=== PATIENT | female | born 1990 | race African-American/Black ===

== ENCOUNTER 2017-02-19 23:15 | Emergency (ER) | payer MEDICAID ==
[~2017-02-19] VITALS: Ht 180.3 cm; Wt 155.0 kg
[2017-02-20] MEDS ORDERED: LIDOCAINE HCL/EPINEPHRINE 1%-EPI 1:100,000 20 ML VIAL MC ONE (00:15)
[2017-02-20] MEDS ORDERED: ONDANSETRON 4MG ODT PO ONE (00:15)
[2017-02-20] MEDS ORDERED: MORPHINE SULFATE 10 MG/ML CPJ IM ONE (00:15)
[2017-02-20 02:00] VITALS: BP 120/69
== END 2017-02-20 02:00 | disposition home or self-care (01) ==
LOC: ER 23:54
DX: L02.411 Cutaneous abscess of right axilla (principal); J45.909 Unspecified asthma, uncomplicated; R03.0 Elevated blood-pressure reading, without diagnosis of hypertension; E66.9 Obesity, unspecified; Z68.42 Body mass index [BMI] 45.0-49.9, adult
CPT/HCPCS: 10060; 96372; 99283; J2270; J3490; Q0162; Z7610

== ENCOUNTER 2017-04-18 15:22 | Emergency (ER) | payer MEDICAID ==
[~2017-04-18] VITALS: Ht 180.3 cm; Wt 125.0 kg
[2017-04-18] MEDS: ONDANSETRON HCL 4MG/2ML VIAL IV ONE (21:00)
[2017-04-18 21:11] LABS: CHLORIDE 107 mEq/L (98-107); INDEX HEMOLYSI 1 (1-3); INDEX ICTERIC 1 (1-4); INDEX LIPEMIC 1 (1-3)
[2017-04-18 21:12] LABS: BASOPHILS % 1.1 % (0.0-2.0); EOSINOPHILS % 0.3 % (0.0-5.0); HEMATOCRIT. 29.9 % (36.0-48.0); LYMPHOCYTES % 20.4 % (20.0-50.0); MEAN CORPUSCULAR HEMOGLOBIN 20.7 pg (28.0-32.0); MEAN CORPUSCULAR HGB CONC 30.2 g/dL (31.0-37.0); MEAN CORPUSCULAR VOLUME 68.5 fL (81.0-99.0); MEAN PLATELET VOLUME 9.2 fl (7.4-10.4); MONOCYTES % 3.6 % (2.0-8.0); NEUTROPHILS % 74.6 % (40.0-76.0); PLATELET 319 x1000/uL (130-400); RED BLOOD CELL COUNT 4.37 mill/uL (4.2-5.4); RED CELL DISTRIBUTION WIDTH 20.2 % (11.6-14.6); WHITE BLOOD COUNT 14.9 x1000/uL (4.5-11.0)
[2017-04-18 21:13] LABS: ANION GAP 9; CALCIUM 8.1 mg/dL (8.5-10.1); CARBON DIOXIDE 28 mEq/L (21-32)
[2017-04-18 21:14] LABS: ADD RBC MORPHOLOGY YES; DIFFERENTIAL COMMENT 1
[2017-04-18 21:16] LABS: HCG SCREEN NEGATIVE; UREA NITROGEN BLOOD 6 mg/dL (7-21)
[2017-04-18 21:21] LABS: B-HCG QUANTITATIVE < 1 mIU/mL (<3); eGFR > 60 mL/min (>60)
[2017-04-18 21:39] LABS: HYPOCHROMASIA 2+; PLATELET ESTIMATE NORMAL
[2017-04-18] MEDS: MORPHINE SULFATE 4 MG/ML CPJ (NOT FOR IM USE) IV ONE (22:50)
[2017-04-18] MEDS: SODIUM CHLORIDE 0.9% 1,000 ML IV ONE (22:50)
[2017-04-18 23:46] LABS: CLARITY URINE CLOUDY (CLEAR); COLOR URINE RED (YELLOW); GLUCOSE URINE NEGATIVE (NEGATIVE); KETONES URINE NEGATIVE (NEGATIVE); LEUKOCYTE ESTERASE URINE 1+ (NEGATIVE); NITRITE URINE NEGATIVE (NEGATIVE); OCCULT BLOOD URINE 3+ (NEGATIVE); PH URINE 6.5 (4.5-8.0); PROTEIN URINE 1+ (NEGATIVE); SPECIFIC GRAVITY URINE 1.013 (1.005-1.030); UROBILINOGEN URINE 0.2 E.U./dL (0.2-1.0)
[2017-04-19 00:13] LABS: RBC URINE TNTC /hpf (0-2)
[2017-04-19 00:14] LABS: BACTERIA URINE 3+; SQUAMOUS EPITHELIAL CELL URINE 2+ /lpf (RARE/1+)
[2017-04-19] MEDS: LIDOCAINE HCL 1% 20ML VIAL (Pyxis) INJ MC ONE (00:47)
[2017-04-19] MEDS: AZITHROMYCIN 250 MG TABLET PO ONE (00:47)
[2017-04-19] MEDS: CEFTRIAXONE SODIUM 1 G/VIAL IM ONE (00:47)
[2017-04-19 01:51] VITALS: BP 153/70
== END 2017-04-19 01:54 | disposition home or self-care (01) ==
LOC: ER 15:23
DX: N93.9 Abnormal uterine and vaginal bleeding, unspecified (principal); R10.32 Left lower quadrant pain; J45.909 Unspecified asthma, uncomplicated; F12.10 Cannabis abuse, uncomplicated
CPT/HCPCS: 36415; 76830; 76856; 80048; 81001; 84702; 84703; 85025; 96361; 96372; 96374; 96375; 99285; J0696; J2270; J2405; J3490; J7030; Z7610

== ENCOUNTER 2017-04-26 01:48 | Emergency (ER) | payer MEDICAID ==
[~2017-04-26] VITALS: Ht 180.3 cm; Wt 160.0 kg
[2017-04-26] MEDS ORDERED: SODIUM CHLORIDE 0.9% 1,000 ML IV ONE (03:48)
[2017-04-26] MEDS ORDERED: MORPHINE SULFATE 4 MG/ML CPJ (NOT FOR IM USE) IV ONE (04:00)
[2017-04-26] MEDS ORDERED: ONDANSETRON HCL 4MG/2ML VIAL IV ONE (04:00)
[2017-04-26 04:20] LABS: BASOPHILS % 0.8 % (0.0-2.0); EOSINOPHILS % 0.6 % (0.0-5.0); HEMATOCRIT. 27.3 % (36.0-48.0); HEMOGLOBIN. 8.5 g/dL (12.0-16.0); LYMPHOCYTES % 27.5 % (20.0-50.0); MEAN CORPUSCULAR HEMOGLOBIN 20.9 pg (28.0-32.0); MEAN CORPUSCULAR VOLUME 67.4 fL (81.0-99.0); MEAN PLATELET VOLUME 8.9 fl (7.4-10.4); MONOCYTES % 5.8 % (2.0-8.0); NEUTROPHILS % 65.3 % (40.0-76.0); PLATELET 303 x1000/uL (130-400); RED BLOOD CELL COUNT 4.05 mill/uL (4.2-5.4)
[2017-04-26 04:24] LABS: PLATELET ESTIMATE NORMAL
[2017-04-26 04:33] LABS: CARBON DIOXIDE 28 mEq/L (21-32); CHLORIDE 106 mEq/L (98-107)
[2017-04-26 04:38] LABS: B-HCG QUANTITATIVE < 1 mIU/mL (<3)
[2017-04-26 06:45] VITALS: BP 117/50
[2017-04-26 06:59] LABS: CLARITY URINE CLOUDY (CLEAR); COLOR URINE ORANGE (YELLOW); GLUCOSE URINE NEGATIVE (NEGATIVE); KETONES URINE NEGATIVE (NEGATIVE); LEUKOCYTE ESTERASE URINE 1+ (NEGATIVE); NITRITE URINE NEGATIVE (NEGATIVE); OCCULT BLOOD URINE 3+ (NEGATIVE); PH URINE 5.5 (4.5-8.0); PROTEIN URINE TRACE (NEGATIVE); SPECIFIC GRAVITY URINE 1.021 (1.005-1.030)
== END 2017-04-26 08:12 | disposition home or self-care (01) ==
LOC: ER 01:49
DX: N93.8 Other specified abnormal uterine and vaginal bleeding (principal); D50.9 Iron deficiency anemia, unspecified; N92.0 Excessive and frequent menstruation with regular cycle; N39.0 Urinary tract infection, site not specified; J45.909 Unspecified asthma, uncomplicated
CPT/HCPCS: 36415; 80053; 81001; 83690; 84702; 85025; 86850; 86900; 86901; 96361; 96374; 96375; 99285; J2270; J2405; J7030

== ENCOUNTER 2017-05-07 22:20 | Emergency (ER) | payer MEDICAID ==
[~2017-05-07] VITALS: Ht 180.3 cm; Wt 125.0 kg
[2017-05-08 00:28] LABS: CHLORIDE 103 mEq/L (98-107)
[2017-05-08 00:30] LABS: HCG SCREEN NEGATIVE
[2017-05-08 00:31] LABS: BASOPHILS % 0.2 % (0.0-2.0); EOSINOPHILS % 0.5 % (0.0-5.0); HEMATOCRIT. 25.3 % (36.0-48.0); HEMOGLOBIN. 7.8 g/dL (12.0-16.0); LYMPHOCYTES % 21.4 % (20.0-50.0); MEAN CORPUSCULAR HEMOGLOBIN 20.9 pg (28.0-32.0); MEAN CORPUSCULAR VOLUME 67.7 fL (81.0-99.0); MEAN PLATELET VOLUME 8.2 fl (7.4-10.4); MONOCYTES % 4.3 % (2.0-8.0); NEUTROPHILS % 73.6 % (40.0-76.0); PLATELET 340 x1000/uL (130-400); RED BLOOD CELL COUNT 3.74 mill/uL (4.2-5.4)
[2017-05-08 00:36] LABS: CARBON DIOXIDE 27 mEq/L (21-32)
[2017-05-08 00:39] LABS: PROTHROMBIN TIME 10.8 sec
[2017-05-08 01:33] VITALS: BP 138/71
== END 2017-05-08 01:34 | disposition home or self-care (01) ==
LOC: ER 22:20
DX: N93.8 Other specified abnormal uterine and vaginal bleeding (principal); F12.90 Cannabis use, unspecified, uncomplicated
CPT/HCPCS: 36415; 80053; 84703; 85025; 85610; 99284; Z7610

== ENCOUNTER 2022-05-03 22:46 | Emergency (ER) | payer MEDICAID, OTHER ==
[~2022-05-03] VITALS: Ht 180.3 cm; Wt 170.0 kg
[2022-05-04] MEDS ORDERED: ACETAMINOPHEN 325MG TABLET PO STA (00:10)
[2022-05-04 00:38] LABS: CLARITY URINE CLEAR (CLEAR); COLOR URINE YELLOW (YELLOW); KETONES URINE TRACE (NEGATIVE); LEUKOCYTE ESTERASE URINE NEGATIVE (NEGATIVE); NITRITE URINE NEGATIVE (NEGATIVE); OCCULT BLOOD URINE NEGATIVE (NEGATIVE); PROTEIN URINE NEGATIVE (NEGATIVE); SPECIFIC GRAVITY URINE 1.024 (1.005-1.030)
[2022-05-04 01:48] LABS: BASOPHILS % 0.3 % (0.0-2.0); EOSINOPHILS % 0.6 % (0.0-5.0); HEMATOCRIT. 33.1 % (36.0-48.0); HEMOGLOBIN. 9.9 g/dL (12.0-16.0); LYMPHOCYTES % 24.1 % (20.0-50.0); MEAN CORPUSCULAR HEMOGLOBIN 19.9 pg (28.0-32.0); MEAN CORPUSCULAR VOLUME 66.3 fL (81.0-99.0); MEAN PLATELET VOLUME 8.9 fl (7.4-10.4); MONOCYTES % 4.3 % (2.0-8.0); NEUTROPHILS % 70.7 % (40.0-76.0); PLATELET 327 x1000/uL (130-400); RED BLOOD CELL COUNT 4.99 mill/uL (4.2-5.4); RED CELL DISTRIBUTION WIDTH 20.8 % (11.6-14.6)
[2022-05-04 01:56] LABS: CHLORIDE 107 mEq/L (98-107)
[2022-05-04] MEDS ORDERED: ACETAMINOPHEN WITH CODEINE 300/30MG TABLET PO ONE (02:15)
[2022-05-04] MEDS ORDERED: TOPUD MT (02:15)
[2022-05-04 02:45] VITALS: BP 127/74
== END 2022-05-04 02:25 | disposition home or self-care (01) ==
LOC: ER 22:46
DX: R10.2 Pelvic and perineal pain (principal); F12.10 Cannabis abuse, uncomplicated; Z88.6 Allergy status to analgesic agent
CPT/HCPCS: 36415; 76830; 76856; 80053; 81003; 85025; 99284

== ENCOUNTER 2025-01-17 21:05 | Emergency (ER) | payer OTHER ==
[~2025-01-17] VITALS: Ht 180.3 cm; Wt 139.0 kg
[~2025-01-17 21:05] MED LIST: TOPUD MT
[2025-01-17 21:10] VITALS: BP 159/98; PULSE 82; RESP 16; TEMP 36.7; O2SAT 99
[2025-01-17 21:45] LABS: DIFFERENTIAL COMMENT 0; EOSINOPHILS % 0.5 % (0.0-5.0); HEMATOCRIT. 32.8 % (36.0-48.0); HEMOGLOBIN. 10.2 g/dL (12.0-16.0); LYMPHOCYTES % 26.5 % (20.0-50.0); MEAN CORPUSCULAR HEMOGLOBIN 22.2 pg (28.0-32.0); MEAN CORPUSCULAR VOLUME 71.4 fL (81.0-99.0); MEAN PLATELET VOLUME 8.8 fl (7.4-10.4); MONOCYTES % 3.5 % (2.0-8.0); NEUTROPHILS % 68.5 % (40.0-76.0); PLATELET 312 x1000/uL (130-400); RED CELL DISTRIBUTION WIDTH 19.1 % (11.6-14.6); WHITE BLOOD COUNT 12.4 x1000/uL (4.5-11.0)
[2025-01-17 22:04] LABS: CHLORIDE 106 mEq/L (98-107); POTASSIUM 3.8 mEq/L (3.5-5.1); SODIUM 138 mEq/L (136-145)
[2025-01-17 22:05] LABS: CALCIUM 8.8 mg/dL (8.7-10.4); CARBON DIOXIDE 23 mEq/L (21-32)
[2025-01-17 22:10] LABS: CREATININE 0.7 mg/dL (0.6-1.0); GLUCOSE 121 mg/dL (70-105); UREA NITROGEN BLOOD 7 mg/dL (9-23)
[2025-01-17 22:11] LABS: TROPONIN I HIGH SENSITIVITY < 4 ng/L (3.0-34)
== END 2025-01-17 23:37 | disposition left against medical advice (07) ==
LOC: ER 21:05
DX: R07.9 Chest pain, unspecified (principal); R53.1 Weakness; Z98.890 Other specified postprocedural states; Z53.21 Procedure and treatment not carried out due to patient leaving prior to being seen by health care provider
CPT/HCPCS: 36415; 71045; 80048; 84484; 85025; 93005

== ENCOUNTER 2025-05-26 04:05 | Emergency (ER) | payer OTHER ==
[~2025-05-26] VITALS: Ht 180.3 cm; Wt 183.0 kg
[2025-05-26 04:27] VITALS: O2SAT 100
[2025-05-26 05:06] LABS: BASOPHILS % 0.8 % (0.0-2.0); EOSINOPHILS % 0.5 % (0.0-5.0); HEMATOCRIT. 35.2 % (36.0-48.0); HEMOGLOBIN. 10.8 g/dL (12.0-16.0); LYMPHOCYTES % 26.9 % (20.0-50.0); MEAN PLATELET VOLUME 9.1 fl (7.4-10.4); MONOCYTES % 3.9 % (2.0-8.0); NEUTROPHILS % 67.9 % (40.0-76.0); PLATELET 308 x1000/uL (130-400); RED BLOOD CELL COUNT 5.05 mill/uL (4.2-5.4); RED CELL DISTRIBUTION WIDTH 20.3 % (11.6-14.6)
[2025-05-26 05:17] LABS: ADD RBC MORPHOLOGY YES
[2025-05-26 05:23] LABS: CLARITY URINE CLEAR (CLEAR); COLOR URINE YELLOW (YELLOW); CREATININE 0.8 mg/dL (0.6-1.0); GLUCOSE URINE NEGATIVE (NEGATIVE); KETONES URINE NEGATIVE (NEGATIVE); LEUKOCYTE ESTERASE URINE NEGATIVE (NEGATIVE); NITRITE URINE NEGATIVE (NEGATIVE); OCCULT BLOOD URINE NEGATIVE (NEGATIVE); PH URINE 5.5 (4.5-8.0); PROTEIN URINE NEGATIVE (NEGATIVE); SPECIFIC GRAVITY URINE 1.020 (1.005-1.030); UREA NITROGEN BLOOD 9 mg/dL (9-23); UROBILINOGEN URINE 0.2 E.U./dL (0.2-1.0)
[2025-05-26 05:25] LABS: ASPARTATE AMINOTRANSFERASE 14 IU/L (<34); BILIRUBIN TOTAL 0.2 mg/dL (0.1-1.0); PROTEIN TOTAL 7.8 g/dL (6.0-8.3)
[2025-05-26] MEDS: MAGNESIUM/ALUMINUM HYDROXIDE/SIMETHICONE 30ML UDC PO STA ×2 (06:16→07:59)
[2025-05-26] MEDS: VISCOUS LIDOCAINE 2% 15 ML UDC PO STA (06:16)
[2025-05-26 06:18] LABS: HCG SCREEN NEGATIVE
[2025-05-26] MEDS: ONDANSETRON HCL 4MG/2ML INJ IV STA (06:26)
[2025-05-26] MEDS: MORPHINE SULFATE 4 MG/ML INJ (FOR IV/IM USE) IV STA (06:27)
[2025-05-26 06:42] LABS: PLATELET ESTIMATE NORMAL
[2025-05-26] MEDS: KETOROLAC 30MG/ML VIAL IV ONE (07:00)
[2025-05-26] MEDS: OXYCODONE HCL/ACETAMINOPHEN 5/325MG TABLET PO ONE (07:03)
[2025-05-26] MEDS ORDERED: OMEP20CA14 MT (07:49)
[2025-05-26 07:54] VITALS: BP 115/56; PULSE 67; RESP 18; TEMP 37.2; O2SAT 100
== END 2025-05-26 08:15 | disposition home or self-care (01) ==
LOC: ER 04:05
DX: R10.32 Left lower quadrant pain (principal); M25.561 Pain in right knee; M25.562 Pain in left knee; M06.9 Rheumatoid arthritis, unspecified; Z79.899 Other long term (current) drug therapy; Z88.6 Allergy status to analgesic agent
CPT/HCPCS: 80053; 81003; 81025; 84703; 85025; 36415; 71045; 96374; 96375; 99285; J1885; J2405; J2270; Z7610

== ENCOUNTER 2025-11-10 20:10 | Inpatient (IN) | payer MEDICAID, OTHER ==
[~2025-11-10] VITALS: Ht 180.3 cm; Wt 191.9 kg
[~2025-11-10 20:10] MED LIST changes: +OMEP20CA14 MT
[2025-11-10 20:16] VITALS: O2SAT 99
[2025-11-11] MEDS: ONDANSETRON HCL 4MG/2ML INJ IV ONE (00:35)
[2025-11-11] MEDS: MORPHINE SULFATE 4 MG/ML INJ (FOR IV/IM USE) IV ONE (00:35)
[2025-11-11 00:48] LABS: BASOPHILS % 1.0 % (0.0-2.0); EOSINOPHILS % 0.9 % (0.0-5.0); HEMATOCRIT. 36.1 % (36.0-48.0); HEMOGLOBIN. 11.2 g/dL (12.0-16.0); LYMPHOCYTES % 16.7 % (20.0-50.0); MEAN PLATELET VOLUME 9.0 fl (7.4-10.4); MONOCYTES % 2.6 % (2.0-8.0); NEUTROPHILS % 78.8 % (40.0-76.0); PLATELET 289 x1000/uL (130-400); RED BLOOD CELL COUNT 4.80 mill/uL (4.2-5.4); RED CELL DISTRIBUTION WIDTH 22.9 % (11.6-14.6)
[2025-11-11 00:51] LABS: ADD RBC MORPHOLOGY YES
[2025-11-11 01:01] LABS: INR 1.0
[2025-11-11 01:02] LABS: CREATININE 0.7 mg/dL (0.6-1.0); UREA NITROGEN BLOOD 10 mg/dL (9-23)
[2025-11-11 01:03] LABS: PROTEIN TOTAL 6.6 g/dL (6.0-8.3)
[2025-11-11 01:04] LABS: ASPARTATE AMINOTRANSFERASE 18 IU/L (<34); BILIRUBIN DIRECT 0.1 mg/dL (<=3.0); BILIRUBIN TOTAL 0.4 mg/dL (0.1-1.0)
[2025-11-11 01:06] LABS: CLARITY URINE CLOUDY (CLEAR); COLOR URINE YELLOW (YELLOW); GLUCOSE URINE NEGATIVE (NEGATIVE); KETONES URINE TRACE (NEGATIVE); LEUKOCYTE ESTERASE URINE NEGATIVE (NEGATIVE); NITRITE URINE NEGATIVE (NEGATIVE); OCCULT BLOOD URINE NEGATIVE (NEGATIVE); PH URINE 6.0 (4.5-8.0); PROTEIN URINE TRACE (NEGATIVE); SPECIFIC GRAVITY URINE 1.037 (1.005-1.030); UROBILINOGEN URINE 1.0 E.U./dL (0.2-1.0)
[2025-11-11] MEDS ORDERED: HYDROMORPHONE HCL/PF 2MG/ML INJ IV ONE ×2 (01:15→04:30)
[2025-11-11] MEDS ORDERED: POTASSIUM CHLORIDE 20MEQ/PACKET PO ONE (01:30)
[2025-11-11] MEDS: HYDROMORPHONE HCL/PF 1MG/ML INJ IV NR ×2 (01:49→04:39)
[2025-11-11 01:51] LABS: AMORPHOUS SEDIMENT URINE 1+ /lpf; BACTERIA URINE TRACE; RBC URINE 0-2 /hpf (0-2); SQUAMOUS EPITHELIAL CELL URINE 2+ /lpf (RARE/1+); WBC URINE 0-2 /hpf (0-2)
[2025-11-11 01:52] LABS: MUCUS URINE 3+ /lpf (< = 2+)
[2025-11-11] MEDS: SODIUM CHLORIDE 0.9% (SEPSIS BOLUS) IV ONE (01:58)
[2025-11-11 02:25] LABS: PLATELET ESTIMATE NORMAL
[2025-11-11] MEDS: PIPERACILLIN/TAZO 3.375G/50ML 50 ML IV ONE (02:51)
[2025-11-11] MEDS ORDERED: HYDROMORPHONE HCL/PF 2MG/ML INJ IV NR (04:30)
[2025-11-11] MEDS: POTASSIUM CHLORIDE 20MEQ/PACKET PO NR (04:40)
[2025-11-11] MEDS: VANCOMYCIN 1G PREMIX 200 ML IV ONE (04:40)
[2025-11-11] MEDS: IOHEXOL-350 100 ML BOTTLE ONE (04:41)
[2025-11-11] MEDS ORDERED: DOCUSATE SODIUM 100MG CAPSULE PO PRN (05:15)
[2025-11-11] MEDS ORDERED: IPRATROPIUM/ALBUTEROL 0.5-3(2.5)MG/3ML NEB HHN PRN (05:15)
[2025-11-11] MEDS ORDERED: ACETAMINOPHEN 325MG TABLET PO PRN (05:15)
[2025-11-11] MEDS ORDERED: GUAIFENESIN 200MG/10ML SUGAR FREE UDC PO PRN (05:15)
[2025-11-11 05:16] VITALS: BP 163/102; PULSE 71; RESP 20; TEMP 36.5848
[2025-11-11 05:50] VITALS: BP 163/102; PULSE 71; RESP 18; TEMP 36.6; O2SAT 100
[2025-11-11] MEDS: ACETAZOLAMIDE 250MG TABLET PO SCH (06:18)
[2025-11-11] MEDS: CLONIDINE 0.1MG TABLET PO PRN (06:18)
[2025-11-11] MEDS: LORAZEPAM 0.5MG TABLET PO PRN (06:18)
[2025-11-11] MEDS ORDERED: HYDRALAZINE 20MG/ML VIAL IV PRN (07:30)
[2025-11-11] MEDS ORDERED: NALOXONE HCL 0.4MG/ML VIAL IV PRN (07:45)
[2025-11-11 08:00] VITALS: BP 138/66; PULSE 80; RESP 16; TEMP 35.7; O2SAT 98
[2025-11-11 08:28] LABS: HEPATITIS C AB NON REACTIVE (Neg) (Negative)
[2025-11-11 10:48] LABS: TRIGLYCERIDE 123 mg/dL (0-150)
[2025-11-11 10:49] LABS: LDL CHOLESTEROL 130 mg/dL (5-100)
[2025-11-11 10:50] LABS: PHOSPHORUS 3.1 mg/dL (2.5-4.9)
[2025-11-11 10:53] LABS: T4 FREE 1.46 ng/dL (0.89-1.76)
[2025-11-11] MEDS: CEFTRIAXONE 2GM/50ML 50 ML IV SCH (11:00)
[2025-11-11] MEDS: ONDANSETRON HCL 4MG/2ML INJ IV PRN (11:00)
[2025-11-11] MEDS: HYDROMORPHONE HCL/PF 2MG/ML INJ IV PRN ×2 (11:00→20:35)
[2025-11-11] MEDS: AMLODIPINE 10MG TABLET PO SCH (11:29)
[2025-11-11 12:00] VITALS: BP 130/70; PULSE 88; RESP 18; TEMP 36.4; O2SAT 99
[2025-11-11] MEDS: METOCLOPRAMIDE HCL 10MG/2ML VIAL IV PRN (14:33)
[2025-11-11 16:00] VITALS: BP 142/60; PULSE 89; RESP 16; TEMP 36; O2SAT 98
[2025-11-11 20:00] VITALS: BP 119/64; PULSE 77; RESP 18; TEMP 37.1; O2SAT 99
[2025-11-11] MEDS: ACETAZOLAMIDE 500MG ER CAPSULE PO SCH (20:34)
[2025-11-12] VITALS: BP 146/91; PULSE 85; RESP 18; TEMP 36.5; O2SAT 98
[2025-11-12] MEDS: ACETAMINOPHEN 325MG TABLET PO PRN (03:39)
[2025-11-12 03:40] VITALS: BP 136/64; PULSE 80; RESP 18; TEMP 36.6; O2SAT 97
[2025-11-12 07:13] LABS: BASOPHILS % 0.1 % (0.0-2.0); EOSINOPHILS % 1.4 % (0.0-5.0); HEMATOCRIT. 32.7 % (36.0-48.0); HEMOGLOBIN. 10.4 g/dL (12.0-16.0); LYMPHOCYTES % 21.5 % (20.0-50.0); MEAN PLATELET VOLUME 8.9 fl (7.4-10.4); MONOCYTES % 4.0 % (2.0-8.0); NEUTROPHILS % 73.0 % (40.0-76.0); PLATELET 243 x1000/uL (130-400); RED BLOOD CELL COUNT 4.33 mill/uL (4.2-5.4); RED CELL DISTRIBUTION WIDTH 22.8 % (11.6-14.6)
[2025-11-12 07:22] LABS: CREATININE 0.6 mg/dL (0.6-1.0)
[2025-11-12 07:23] LABS: UREA NITROGEN BLOOD < 5 mg/dL (9-23)
[2025-11-12 07:30] LABS: ADD RBC MORPHOLOGY NO
[2025-11-12 08:00] VITALS: BP 129/65; PULSE 79; RESP 18; TEMP 36.2; O2SAT 98
[2025-11-12] MEDS: MORPHINE SULFATE 2 MG/ML INJ (NOT FOR IM USE) IV PRN (09:46)
[2025-11-12] MEDS: POTASSIUM CHLORIDE 20MEQ/PACKET PO NR (09:46)
[2025-11-12 12:00] VITALS: BP 121/61; PULSE 81; RESP 18; TEMP 36.4; O2SAT 97
[2025-11-12] MEDS: HYDROMORPHONE HCL/PF 2MG/ML INJ IV PRN (14:09)
[2025-11-12] MEDS: PROCHLORPERAZINE 10MG/2ML VIAL IM PRN (14:11)
[2025-11-12 16:00] VITALS: BP 126/60; PULSE 95; RESP 18; TEMP 36.2; O2SAT 97
[2025-11-12] MEDS ORDERED: AMLO10TA80 MT (16:32)
[2025-11-12] MEDS ORDERED: PROC5TAB73 MT (16:32)
[2025-11-12] MEDS ORDERED: ACET250T29 MT (16:32)
[2025-11-12] MEDS ORDERED: IBUP-1455 MT (16:32)
[2025-11-12 20:00] VITALS: BP 148/65; PULSE 75; RESP 20; TEMP 36.5; O2SAT 97
[2025-11-13 02:20] VITALS: BP 155/83; PULSE 95; RESP 18; O2SAT 97
[2025-11-13 08:23] VITALS: BP 148/79; PULSE 82; RESP 20; TEMP 36.4
[2025-11-13 12:05] VITALS: BP 151/79; PULSE 77; RESP 18; TEMP 36.4
[2025-11-13 16:17] VITALS: BP 129/62; PULSE 89
[2025-11-13 16:33] VITALS: BP 112/60; PULSE 76; RESP 16; TEMP 98.5
== END 2025-11-13 18:00 | disposition home or self-care (01) | DRG 54 ==
LOC: ER 20:10 → 7WST 11-11 04:20 → EDBEDREQ 11-11 04:24 → EDBEDREQTM 11-11 04:24
PROVIDERS: ADMIT Internal Medicine; ATTEND Internal Medicine
DX: G43.909 Migraine, unspecified, not intractable, without status migrainosus (principal); Z68.43 Body mass index [BMI] 50.0-59.9, adult; D72.829 Elevated white blood cell count, unspecified; E87.6 Hypokalemia; E11.9 Type 2 diabetes mellitus without complications; E66.01 Morbid (severe) obesity due to excess calories; I10 Essential (primary) hypertension; M06.9 Rheumatoid arthritis, unspecified; G93.2 Benign intracranial hypertension; Z88.6 Allergy status to analgesic agent; Z79.899 Other long term (current) drug therapy
CPT/HCPCS: 36415; 70496; 71045; 80048; 80061; 80076; 81003; 83036; 83605; 83735; 84100; 84145; 84439; 84443; 85025; 86705; 87340; 93005; 93970; 96365; 96375; 99285; A4615; J0696; J0780; J1171; J2270; J2405; J2543; J2765; J3373; J7030; Q9967